=== PATIENT | male | born 1955 | race Caucasian/White ===

== ENCOUNTER 2021-07-17 15:57 | Inpatient (IN) | payer MEDICARE, MEDICAID ==
[~2021-07-17] VITALS: Ht 167.6 cm; Wt 74.4 kg
[2021-07-17 17:05] VITALS: BP 146/94
[2021-07-17] MEDS ORDERED: ACETAMINOPHEN 325 MG TABLET PO PRN (18:00)
[2021-07-17] MEDS ORDERED: MELATONIN 5 MG TABLET PO PRN (18:00)
[2021-07-17] MEDS ORDERED: SENNA 187 MG TABLET PO SCH (21:00)
[2021-07-17] MEDS: DOCUSATE SODIUM 100 MG CAPSULE PO SCH (21:05)
[2021-07-17] MEDS: ETHYL ALCOHOL 62% ANTISEPTIC NASAL INHALANT 0.6 ML AMPUL NASAL SCH (21:17)
[2021-07-18 00:33] VITALS: BP 154/92
[2021-07-18 07:23] LABS: BASOPHILS % (AUTO) 0.9 % (0.0-2.0); EOSINOPHILS % (AUTO) 1.5 % (1.0-6.0); HEMATOCRIT 50.5 % (41-53); HEMOGLOBIN 16.5 g/dL (13.5-17.5); LYMPHOCYTES # (AUTO) 2.3 K/uL (1.0-4.8); LYMPHOCYTES % (AUTO) 32.6 % (22.0-44.0); MEAN CORPUSCULAR HEMOGLOBIN 30.6 pg (26.0-34.0); MEAN CORPUSCULAR HGB CONC 32.7 G/dL (31.0-37.0); MEAN CORPUSCULAR VOLUME 94 fL (80-100); MONOCYTES # (AUTO) 0.6 K/uL (0.1-1.0); NEUTROPHILS # (AUTO) 4.1 K/uL (1.8-7.7); PLATELET COUNT (AUTO) 197 K/uL (150-450); RED BLOOD CELL COUNT(AUTO) 5.39 MIL/uL (4.50-5.90); RED CELL DISTRIBUTION WIDTH 14.1 % (11.5-14.5)
[2021-07-18] MEDS: ETHYL ALCOHOL 62% ANTISEPTIC NASAL INHALANT 0.6 ML AMPUL NASAL SCH ×2 (07:40→20:06)
[2021-07-18] MEDS: AmLODIPine BESYLATE 10 MG TABLET PO SCH (07:40)
[2021-07-18] MEDS: LISINOPRIL 10 MG TABLET PO SCH (07:40)
[2021-07-18] MEDS: DOCUSATE SODIUM 100 MG CAPSULE PO SCH (07:40)
[2021-07-18 08:00] LABS: ALANINE AMINOTRANSFERASE 73 U/L (12-78); ALBUMIN 3.7 g/dL (3.4-5.0); ALKALINE PHOSPHATASE 133 U/L (46-116); ANION GAP 6 mmol/L (8-16); ASPARTATE AMINOTRANSFERASE 30 U/L (15-37); BILIRUBIN,TOTAL 0.8 mg/dL (0.1-1.0); CALCIUM, TOTAL 8.5 mg/dL (8.8-10.5); CARBON DIOXIDE 26 mmol/L (22-29); CHLORIDE 106 mmol/L (98-107); CREATININE 0.91 mg/dL (0.60-1.30); GLOMERULAR FILTR. RATE CALC > 60 mL/min (>60); GLUCOSE,RANDOM 98 mg/dL (70-110); POTASSIUM 4.1 mmol/L (3.5-5.1); SODIUM SERUM 138 mmol/L (136-145); TOTAL PROTEIN, SERUM 8.1 g/dL (6.4-8.2); UREA NITROGEN, BLOOD 24 mg/dL (7-18)
[2021-07-18 09:44] VITALS: BP 153/98
[2021-07-18 14:09] VITALS: BP 150/90
[2021-07-18 15:44] VITALS: BP 149/98
[2021-07-18] MEDS: DOCUSATE SODIUM 250 MG CAPSULE PO SCH (20:05)
[2021-07-18] MEDS: SENNA 187 MG TABLET PO SCH (20:06)
[2021-07-19 02:00] VITALS: BP 151/94
[2021-07-19 08:00] VITALS: BP 161/95
[2021-07-19] MEDS: ETHYL ALCOHOL 62% ANTISEPTIC NASAL INHALANT 0.6 ML AMPUL NASAL SCH ×2 (08:39→20:05)
[2021-07-19] MEDS: LISINOPRIL 10 MG TABLET PO SCH (08:39)
[2021-07-19] MEDS: DOCUSATE SODIUM 250 MG CAPSULE PO SCH ×2 (08:39→20:05)
[2021-07-19] MEDS: AmLODIPine BESYLATE 10 MG TABLET PO SCH (08:39)
[2021-07-19] MEDS ORDERED: HydrALAZINE HCL 25 MG TABLET PO PRN (10:00)
[2021-07-19 11:49] VITALS: BP 152/98
[2021-07-19] MEDS: TAMSULOSIN HCL 0.4 MG CAPSULE PO SCH (11:52)
[2021-07-19 15:57] VITALS: BP 133/78
[2021-07-19] MEDS ORDERED: TAMS-13 PO (17:51)
[2021-07-19] MEDS ORDERED: ATOR40TA28 PO (17:51)
[2021-07-19] MEDS ORDERED: ASPI-1444 PO (17:51)
[2021-07-19] MEDS: MAGNESIUM HYDROXIDE SUSPENSION 30 ML UDCUP PO PRN (18:54)
[2021-07-19] MEDS: SENNA 187 MG TABLET PO SCH (20:06)
[2021-07-20 01:00] VITALS: BP 156/97
[2021-07-20] MEDS: MAGNESIUM HYDROXIDE SUSPENSION 30 ML UDCUP PO PRN ×2 (06:24→18:01)
[2021-07-20] MEDS: AmLODIPine BESYLATE 10 MG TABLET PO SCH (08:00)
[2021-07-20] MEDS: LISINOPRIL 10 MG TABLET PO SCH (08:00)
[2021-07-20] MEDS: ETHYL ALCOHOL 62% ANTISEPTIC NASAL INHALANT 0.6 ML AMPUL NASAL SCH ×2 (08:00→19:53)
[2021-07-20] MEDS: DOCUSATE SODIUM 250 MG CAPSULE PO SCH ×2 (08:01→19:53)
[2021-07-20] MEDS: TAMSULOSIN HCL 0.4 MG CAPSULE PO SCH (08:01)
[2021-07-20 08:44] VITALS: BP 146/91
[2021-07-20 15:27] VITALS: BP 148/98
[2021-07-20] MEDS: SENNA 187 MG TABLET PO SCH (19:53)
[2021-07-21 04:05] VITALS: BP 148/87
[2021-07-21] MEDS: MAGNESIUM HYDROXIDE SUSPENSION 30 ML UDCUP PO PRN (06:02)
[2021-07-21 07:35] VITALS: BP 152/91
[2021-07-21] MEDS: TAMSULOSIN HCL 0.4 MG CAPSULE PO SCH (07:55)
[2021-07-21] MEDS: ETHYL ALCOHOL 62% ANTISEPTIC NASAL INHALANT 0.6 ML AMPUL NASAL SCH ×2 (07:55→20:47)
[2021-07-21] MEDS: LISINOPRIL 10 MG TABLET PO SCH (07:55)
[2021-07-21] MEDS: AmLODIPine BESYLATE 10 MG TABLET PO SCH (07:55)
[2021-07-21] MEDS: DOCUSATE SODIUM 250 MG CAPSULE PO SCH ×2 (07:55→20:47)
[2021-07-21] MEDS ORDERED: MAGNESIUM CITRATE 300 ML ORAL SOLUTION PO ONE (11:15)
[2021-07-21 15:44] VITALS: BP 118/74
[2021-07-21] MEDS: SENNA 187 MG TABLET PO SCH (20:47)
[2021-07-21 23:00] VITALS: BP 130/96
[2021-07-22] MEDS: ETHYL ALCOHOL 62% ANTISEPTIC NASAL INHALANT 0.6 ML AMPUL NASAL SCH ×2 (07:53→20:34)
[2021-07-22] MEDS: DOCUSATE SODIUM 250 MG CAPSULE PO SCH ×2 (07:54→20:33)
[2021-07-22] MEDS: TAMSULOSIN HCL 0.4 MG CAPSULE PO SCH (07:54)
[2021-07-22] MEDS: AmLODIPine BESYLATE 10 MG TABLET PO SCH (07:55)
[2021-07-22] MEDS: LISINOPRIL 20 MG TABLET PO SCH (07:55)
[2021-07-22 08:30] VITALS: BP 156/92
[2021-07-22 12:42] VITALS: BP 137/88
[2021-07-22 16:10] VITALS: BP 138/89
[2021-07-22 19:09] VITALS: BP 138/89
[2021-07-22] MEDS ORDERED: DOCU-350 PO (19:38)
[2021-07-22] MEDS ORDERED: SENN8.6T20 PO (19:38)
[2021-07-22] MEDS ORDERED: LISI-894 PO (19:38)
[2021-07-22] MEDS ORDERED: AMLO-258 PO (19:38)
[2021-07-22] MEDS: SENNA 187 MG TABLET PO SCH (20:33)
[2021-07-23] VITALS (7 sets, daily range): BP systolic 136–145; BP diastolic 84–98
[2021-07-23] MEDS: ETHYL ALCOHOL 62% ANTISEPTIC NASAL INHALANT 0.6 ML AMPUL NASAL SCH ×2 (08:01→20:27)
[2021-07-23] MEDS: AmLODIPine BESYLATE 10 MG TABLET PO SCH (08:01)
[2021-07-23] MEDS: DOCUSATE SODIUM 250 MG CAPSULE PO SCH ×2 (08:02→20:28)
[2021-07-23] MEDS: LISINOPRIL 20 MG TABLET PO SCH (08:02)
[2021-07-23] MEDS: SENNA 187 MG TABLET PO SCH (20:28)
[2021-07-23] MEDS: TAMSULOSIN HCL 0.4 MG CAPSULE PO SCH (20:29)
[2021-07-24 00:14] VITALS: BP 144/96
[2021-07-24] MEDS: ETHYL ALCOHOL 62% ANTISEPTIC NASAL INHALANT 0.6 ML AMPUL NASAL SCH ×2 (08:09→21:15)
[2021-07-24] MEDS: AmLODIPine BESYLATE 10 MG TABLET PO SCH (08:09)
[2021-07-24] MEDS: DOCUSATE SODIUM 250 MG CAPSULE PO SCH ×2 (08:10→21:15)
[2021-07-24] MEDS: LISINOPRIL 20 MG TABLET PO SCH (08:10)
[2021-07-24 08:37] VITALS: BP 146/92
[2021-07-24 09:52] VITALS: BP 146/92
[2021-07-24] MEDS: MAGNESIUM HYDROXIDE SUSPENSION 30 ML UDCUP PO PRN (13:21)
[2021-07-24 15:22] VITALS: BP 144/88
[2021-07-24 15:25] VITALS: BP 144/88
[2021-07-24] MEDS: TAMSULOSIN HCL 0.4 MG CAPSULE PO SCH (21:15)
[2021-07-24] MEDS: SENNA 187 MG TABLET PO SCH (21:15)
[2021-07-24 23:30] VITALS: BP 142/94
[2021-07-25 07:21] VITALS: BP 141/99
[2021-07-25] MEDS: DOCUSATE SODIUM 250 MG CAPSULE PO SCH ×2 (08:09→20:43)
[2021-07-25] MEDS: LISINOPRIL 20 MG TABLET PO SCH (08:09)
[2021-07-25] MEDS: AmLODIPine BESYLATE 10 MG TABLET PO SCH (08:09)
[2021-07-25] MEDS: ETHYL ALCOHOL 62% ANTISEPTIC NASAL INHALANT 0.6 ML AMPUL NASAL SCH ×2 (08:10→20:43)
[2021-07-25 16:00] VITALS: BP 133/81
[2021-07-25] MEDS: SENNA 187 MG TABLET PO SCH (20:43)
[2021-07-25] MEDS: TAMSULOSIN HCL 0.4 MG CAPSULE PO SCH (20:43)
[2021-07-26 00:26] VITALS: BP 145/90
[2021-07-26 08:05] VITALS: BP 148/98
[2021-07-26] MEDS: DOCUSATE SODIUM 250 MG CAPSULE PO SCH ×2 (08:10→20:21)
[2021-07-26] MEDS: LISINOPRIL 20 MG TABLET PO SCH (08:10)
[2021-07-26] MEDS: AmLODIPine BESYLATE 10 MG TABLET PO SCH (08:11)
[2021-07-26] MEDS: ETHYL ALCOHOL 62% ANTISEPTIC NASAL INHALANT 0.6 ML AMPUL NASAL SCH ×2 (08:12→20:21)
[2021-07-26 16:01] VITALS: BP 131/75
[2021-07-26] MEDS: TAMSULOSIN HCL 0.4 MG CAPSULE PO SCH (20:22)
[2021-07-26] MEDS: SENNA 187 MG TABLET PO SCH (20:22)
[2021-07-27 04:45] VITALS: BP 135/84
[2021-07-27] MEDS: AmLODIPine BESYLATE 10 MG TABLET PO SCH (08:01)
[2021-07-27] MEDS: ETHYL ALCOHOL 62% ANTISEPTIC NASAL INHALANT 0.6 ML AMPUL NASAL SCH ×2 (08:01→20:41)
[2021-07-27] MEDS: LISINOPRIL 20 MG TABLET PO SCH (08:02)
[2021-07-27] MEDS: DOCUSATE SODIUM 250 MG CAPSULE PO SCH ×2 (08:03→20:41)
[2021-07-27 08:07] VITALS: BP 142/95
[2021-07-27 15:17] VITALS: BP 143/88
[2021-07-27] MEDS: TAMSULOSIN HCL 0.4 MG CAPSULE PO SCH (20:41)
[2021-07-27] MEDS: SENNA 187 MG TABLET PO SCH (20:41)
[2021-07-27 23:00] VITALS: BP 144/90
[2021-07-28] MEDS: AmLODIPine BESYLATE 10 MG TABLET PO SCH (08:27)
[2021-07-28] MEDS: DOCUSATE SODIUM 250 MG CAPSULE PO SCH (08:27)
[2021-07-28] MEDS: LISINOPRIL 20 MG TABLET PO SCH (08:28)
[2021-07-28] MEDS: ETHYL ALCOHOL 62% ANTISEPTIC NASAL INHALANT 0.6 ML AMPUL NASAL SCH (08:28)
[2021-07-28 09:09] VITALS: BP 141/98
== END 2021-07-28 11:00 | disposition home or self-care (01) | DRG 65 ==
LOC: 2WR 17:02
PROVIDERS: ADMIT Physical Medicine & Rehabilitation; ATTEND Physical Medicine & Rehabilitation
DX: I61.9 Nontraumatic intracerebral hemorrhage, unspecified (principal); G81.91 Hemiplegia, unspecified affecting right dominant side; B19.20 Unspecified viral hepatitis C without hepatic coma; E78.5 Hyperlipidemia, unspecified; I25.2 Old myocardial infarction; I10 Essential (primary) hypertension; B18.2 Chronic viral hepatitis C; G47.00 Insomnia, unspecified; I25.10 Atherosclerotic heart disease of native coronary artery without angina pectoris; K59.00 Constipation, unspecified; N40.0 Benign prostatic hyperplasia without lower urinary tract symptoms; G31.84 Mild cognitive impairment of uncertain or unknown etiology; F19.10 Other psychoactive substance abuse, uncomplicated; R47.1 Dysarthria and anarthria; R13.10 Dysphagia, unspecified; I67.1 Cerebral aneurysm, nonruptured
CPT/HCPCS: 80053; 85025; 87081; 92507; 92523; 93970; 97110; 97112; 97116; 97150; 97161; 97166; 97530; 97535; 99366